=== PATIENT | female | born 1980 | race American Indian/Alaskan Native ===

== ENCOUNTER 2019-03-13 11:22 | Outpatient (CLI) | payer OTHER ==
--- NOTE | 2019-03-16 14:58 | Mammography Report ---
DIGITAL SCREENING MAMMOGRAM WITH CAD, 03/13/2019 INDICATION: Baseline screening mammography. TECHNIQUE: Digital bilateral 2D mammography was obtained in the craniocaudal and mediolateral obliq ue projections. This examination was interpreted with the benefit of Computer-Aided Detection analysi s. COMPARISON: None. FINDINGS: Breast Density: The breasts are heterogeneously dense, which may obscure small masses. There is no evidence of dominant mass, suspicious calcifications or architectural distortion in eithe r breast. IMPRESSION: No mammographic evidence of malignancy. Follow up recommendation: Unless otherwise clinically indicated, recommend patient return to routine screening mammography at age 40. BI-RADS Category 1: Negative. A "normal" or negative report should not discourage follow up or biopsy of a clinically significant f inding. A written summary of these findings will be mailed to the patient. The patient will be entered into a mammography reporting system which will generate a reminder letter for the patient's next appointmen t at the appropriate interval. The [employer] recommends yearly mammograms starting at age 40 and continuing as l soraida as a woman is in good health. Breast MRI is recommended for women with an approximate 20-25% or greater lifetime risk of breast cancer, including women with a strong family history of breast or ova peter cancer or who have been treated for Hodgkin's disease. Signer Name: Vivek Fnog MD Signed: 03/16/2019 2:53 PM Workstation Name: [id number]
== END 2019-03-13 11:23 | disposition home or self-care (01) ==
LOC: SPVWC 11:22
PROVIDERS: ATTEND Urology
DX: Z12.31 Encounter for screening mammogram for malignant neoplasm of breast (principal)
CPT/HCPCS: 77067

== ENCOUNTER 2020-03-30 14:12 | Outpatient (CLI) | payer OTHER ==
--- NOTE | 2020-03-30 16:26 | Mammography Report ---
BILATERAL DIGITAL SCREENING MAMMOGRAM WITH CAD HISTORY: SCREENING MAMMO TECHNIQUE: Routine digital mammographic imaging performed. This examination was interpreted with eduar jimenez benefit of Computer-aided Detection analysis. COMPARISON: 03/13/2019. FINDINGS: Breast Density: heterogeneously dense breast parenchymal pattern which somewhat lessens the sensitivi ty of the evaluation. Digital CC and MLO views demonstrate an asymmetry in the inferior right anterior breast. This is see n on the MLO view only. No suspicious findings within the left breast. IMPRESSION: Right anterior inferior breast asymmetry for which additional mammographic views and possible ultraso und is recommended. BIRADS 0-Incomplete: Needs additional imaging evaluation NOTE: WE WILL RECALL THE PATIENT FOR THIS ADDITIONAL EVALUATION. FURTHER INFORMATION: According to the [employer], yearly mammograms are recommend ed starting at age 40 and continuing as long as a woman is in good health. Clinical Breast Exams shou ld be part of a periodic health exam-about every 3 years for women in their 20s and 30s and every yea r for women 40 and over. Breast self exam is an option for women starting in their 20s. Any breast ch kiran noted on a breast self exam should be reported promptly to the patient's healthcare provider. Br east MRI is recommended for women with an approximately 20-25% or greater lifetime risk of breast can cer, including women with a strong family history of breast or ovarian cancer and women who have been treated for Hodgkin's disease. A negative Mammography report should not discourage follow up or biopsy of a clinically significant f inding and/or abnormality. Dense breast tissue may obscure small neoplasms. The patient will be entered into a reminder system with a target due date for the next screening mamm ogram. Signer Name: Arjun Dumont MD Signed: 03/30/2020 4:25 PM Workstation Name: [id number]
== END 2020-03-30 14:13 | disposition home or self-care (01) ==
LOC: SPVWC 14:12
PROVIDERS: ATTEND Urology
DX: Z12.31 Encounter for screening mammogram for malignant neoplasm of breast (principal)
CPT/HCPCS: 77067

== ENCOUNTER 2020-06-07 10:54 | Outpatient (CLI) | payer OTHER ==
--- NOTE | 2020-06-07 11:35 | Mammography Report ---
DIGITAL DIAGNOSTIC MAMMOGRAM WITH CAD CONVENTIONAL, 06/07/2020 CLINICAL INFORMATION / INDICATION: Right breast asymmetry on screening mammography. TECHNIQUE: Digital right mammographic imaging was performed. Spot compression views were obtained. This examination was interpreted with the benefit of Computer-aided Detection analysis. COMPARISON: Bilateral mammography 03/13/2019 and 03/30/2020. FINDINGS: Breast Density: The breasts are heterogeneously dense, which may obscure small masses. Asymmetry in the right inferior breast in the anterior depth resolves on additional imaging. No abnor mality or change since 03/13/19 is identified. IMPRESSION: No mammographic evidence of malignancy. Follow up recommendation: Routine yearly BI-RADS Category 1: Negative. A "normal" or negative report should not discourage follow up or biopsy of a clinically significant f inding. A written summary of these findings will be mailed to the patient. The patient will be entered into a mammography reporting system which will generate a reminder letter for the patient's next appointmen t at the appropriate interval. According to the [employer], yearly mammograms are recommended starting at age 40 and continuing as long as a woman is in good health. Breast MRI is recommended for women with an susana roximately 20-25% or greater lifetime risk of breast cancer, including women with a strong family his tory of breast or ovarian cancer and women who have been treated for Hodgkin's disease. Signer Name: Madhav De La Garza MD Signed: 06/07/2020 11:31 AM Workstation Name: [id number]
== END 2020-06-07 10:55 | disposition home or self-care (01) ==
LOC: SPVWC 10:54
DX: N64.89 Other specified disorders of breast (principal); R92.8 Other abnormal and inconclusive findings on diagnostic imaging of breast

== ENCOUNTER 2021-03-31 11:24 | Outpatient (CLI) | payer OTHER | END 2021-03-31 11:25 | disposition home or self-care (01) | LOC: SPVWC 11:24 | PROVIDERS: ATTEND Family Medicine | DX: Z12.31 Encounter for screening mammogram for malignant neoplasm of breast (principal) | CPT/HCPCS: 77067 ==